=== PATIENT | female | born 1995 | race Caucasian/White ===

== ENCOUNTER 2021-11-13 18:27 | Emergency (ER) | payer SELFPAY ==
[2021-11-13 18:48] VITALS: BP 113/65
== END 2021-11-13 22:25 | disposition left against medical advice (07) ==
LOC: ED 18:27
DX: N93.9 Abnormal uterine and vaginal bleeding, unspecified (principal); Z53.21 Procedure and treatment not carried out due to patient leaving prior to being seen by health care provider